=== PATIENT | male | born 1995 | race Caucasian/White ===

== ENCOUNTER 2025-05-01 14:35 | Inpatient (IN) | payer MEDICAID, SELFPAY ==
--- NOTE | 2025-05-01 14:37 | W.ED.PSYCHS ---
HPI - Psych General: Chief Complaint: Psychiatric Symptoms Stated Complaint: 96 Time Seen by Provider: 05/01/25 14:37 History of Present Illness: 29-year-old man who presents emergency room with police on an court ordered 96-hour hold. According to affidavit he had tied a belt around his neck and was going to kill himself. According to police he had told them that he was going to kill himself. He says today he is not suicidal he just really wants to go home. Apparently there was issues with his girlfriend breaking up with him. Or sleeping with someone else Related Data Home Medications ?Medication ?Instructions ?Recorded ?Confirmed famotidine 20 mg tablet 20 mg PO BID 12/22/24 02/24/25 pantoprazole 20 mg tablet,delayed 20 mg PO DAILY 12/22/24 02/24/25 release Previous Rx's ?Medication ?Instructions ?Recorded divalproex 250 mg tablet,extended 250 mg PO DAILY #30 tabs 12/22/24 release 24 hr sertraline 100 mg tablet 100 mg PO DAILY 30 days #30 tabs 12/22/24 quetiapine 50 mg tablet 50 mg PO DAILY #30 tabs 01/27/25 trazodone 100 mg tablet 100 mg PO BEDTIME PRN sleep #30 01/27/25 tabs paliperidone 3 mg tablet,extended 3 mg PO QAM #30 tabs 02/24/25 release 24 hr (Invega) Allergies Allergy/AdvReac Type Severity Reaction Status Date / Time No Known Allergies Allergy Verified 02/24/25 09:57 Review of Systems Narrative: Constitutional symptoms: Negative except as documented in HPI. Skin symptoms: Negative except as documented in HPI. Eye symptoms: Negative except as documented in HPI. ENMT symptoms: Negative except as documented in HPI. Respiratory symptoms: Negative except as documented in HPI. Cardiovascular symptoms: Negative except as documented in HPI. Gastrointestinal symptoms: Negative except as documented in HPI. Genitourinary symptoms: Negative except as documented in HPI. Musculoskeletal symptoms: Negative except as documented in HPI. Neurologic symptoms: Negative except as documented in HPI. Psychiatric symptoms: Negative except as documented in HPI. Endocrine symptoms: Negative except as documented in HPI. [facility] ED PFSH: Medical History (Updated 05/01/25 @ 15:32 by Rosalia Vernon MD) Schizophrenia Psychiatric care Physical Exam Narrative: EXAM NARRATIVE: General: Alert, no acute distress. Skin: Warm, dry. Head: Normocephalic, atraumatic. Neck: Supple, trachea midline. Eye: Extraocular movements are intact. Ears, nose, mouth and throat: mucosa moist. Cardiovascular: Regular, Normal peripheral perfusion. Respiratory: Lungs are clear to auscultation, respirations are non-labored, breath sounds are equal, Symmetrical chest wall expansion. Gastrointestinal: Soft, Nontender, Non distended Musculoskeletal: Normal ROM, no deformity. Neurological: Alert and oriented, No focal neurological deficit observed. Psychiatric: Cooperative, currently denies suicidal thoughts Course Vital Signs: Vital signs: Vital Signs Temperature 98.1 F 05/01/25 14:51 Pulse Rate 99 05/01/25 14:51 Respiratory Rate 18 05/01/25 14:51 Blood Pressure 138/76 05/01/25 14:51 Pulse Oximetry 99 05/01/25 14:51 Oxygen Delivery Me thod Room Air 05/01/25 14:51 MDM - Psych Medical Decision Making Differential diagnosis: Patient with reported depression and suicidal ideation. concerns for infection, alcohol intoxication, cardiac issues or other medical problems prior to psychiatric admission. Workup: labwork, ekg ordered to evaluate the pathologies and to clear the patient medically prior to psychiatric admission EKG: Time 1511. Rate 87. Normal sinus rhythm, No ST-T changes, no ectopy, normal AR & QRS intervals, This was reviewed and interpreted by myself the ER physician at 1515 Lab Review: Laboratory results were reviewed and interpreted by myself the emergency room physician. - Medically cleared. - EKG shows no ischemic changes. - Blood alcohol level is negative, -Tylenol and salicylate levels are negative. - Urinalysis and drug screen pending at admission - No anemia. - BUN and creatinine are within normal limits. Consultation: I spoke with Dr. Bermudez who is on-call for the psychiatry service who agrees to admission Assessment and plan: Suicidal ideation ?Patient is on a court ordered 96-hour hold -Admission to neuropsychiatric unit for continued evaluation and treatment. - All lab work was reviewed and interpreted personally by myself, the ER physician - Evaluation and treatment of this problem were appropriate in the emergency setting Lab Data 05/01/25 14:47 05/01/25 14:47 Laboratory Results WBC 7.86 10^3/uL (3.29-11.43) 10/17/25 14:47 RBC 4.73 10^6/uL (3.85-5.65) 05/01/25 14:47 Hgb 14.00 g/dL (11.27-16.99) 05/01/25 14:47 Hct 41.8 % (37-53) 05/01/25 14:47 MCV 88.4 fl (82-101) 05/01/25 14:47 MCH 29.6 pg (27-33) 05/01/25 14:47 MCHC 33.5 g/dL (30-55) 05/01/25 14:47 RDW 14.0 % (12.1-15.1) 05/01/25 14:47 Plt Count 272 10^3/cmm (157-399) 05/01/25 14:47 MPV 10.6 fL (7.4-10.4) H 05/01/25 14:47 Neut % (Auto) 66.4 % 05/01/25 14:47 Lymph % (Auto) 19.7 % 05/01/25 14:47 [place] % (Auto) 13.0 % 05/01/25 14:47 Eos % (Auto) 0.1 % 05/01/25 14:47 Baso % (Auto) 0.5 % 05/01/25 14:47 Neut # (Auto) 5.22 10^3/uL (1.8-7.7) 05/01/25 14:47 Lymph # (Auto) 1.6 10^3/uL (0.8-4.8) 05/01/25 14:47 [place] # (Auto) 1.0 10^3/uL (0.2-0.9) H 05/01/25 14:47 Eos # (Auto) 0.0 10^3/uL (0.0-0.8) 05/01/25 14:47 Baso # (Auto) 0.0 10^3/uL (0.0-0.1) 05/01/25 14:47 Nucleated RBC % (auto) 0 % 05/01/25 14:47 Nucleated RBCs # 0.0 /100WBC 05/01/25 14:47 Sodium 138 mmol/L (136-145) 05/01/25 14:47 Potassium 3.9 mmol/L (3.5-5.1) 05/01/25 14:47 Chloride 100 mmol/L (98-107) 05/01/25 14:47 Carbon Dioxide 21 mmol/L (22-29) L 05/01/25 14:47 Anion Gap 20.9 (5-19) H 05/01/25 14:47 BUN 19 mg/dL (6-20) 05/01/25 14:47 Creatinine 0.7 mg/dL (0.7-1.2) 05/01/25 14:47 GFR Calculation 132.4 mL/min (90-130) H 05/01/25 14:47 Glucose 71 mg/dL (65-115) 05/01/25 14:47 Calculated Osmolality 287 mOsm/kg (285-295) 05/01/25 14:47 Calcium 9.6 mg/dL (8.5-10.5) 05/01/25 14:47 Total Bilirubin 0.8 mg/dL (0.15-1.2) 05/01/25 14:47 AST 23 U/L (0-40) 05/01/25 14:47 ALT 17 U/L (0-41) 05/01/25 14:47 Alkaline Phosphatase 132 U/L (40-130) H 05/01/25 14:47 Total Protein 7.4 g/dL (6.6-8.7) 05/01/25 14:47 Albumin 4.4 g/dL (3.5-5.2) 05/01/25 14:47 Globulin 3.0 g/dL (1.3-4.6) 05/01/25 14:47 TSH 0.54 uIU/mL (0.27-4.20) 05/01/25 14:47 Salicylates < 0.3 mg/dL (3-10) L 05/01/25 14:47 Acetaminophen < 5.0 ug/mL (10-30) L 05/01/25 14:47 Ethyl Alcohol < 10 mg/dL (0-10) 05/01/25 14:47 No radiology studies performed this visit Discharge Plan Discharge Patient Disposition: Admitted As Inpatient Clinical Impression: Suicidal ideation Condition: Stable Coding Level of Care Code ED Lead Generator for Kelsi Sabillon
--- OUTSIDE RECORDS SUMMARY | 2025-05-01 14:43 | XMS_ITS | Clinical Summary ---
Author Organization [facility] Address [address] [place] [address] Phone Care Team Providers Care Ranch Helper Name Role Phone GuyVera JOCELYNE Primary Care Provider [phone] Allergies No known active allergies Medications haloperidol decanoate (Haldol Decanoate) 100 mg/mL injection Inject 100 mg into the shoulder, thigh, or buttocks every 28 (twenty-eight ) days. Active pantoprazole (ProtoNix) 20 mg EC tablet Take 20 mg by mouth 1 (one) time each day before breakfast. 02/24/2015 Active sertraline (Zoloft) 100 mg tablet Take 100 mg by mouth 1 (one) time each day. 02/24/2015 Active QUEtiapine (SEROquel) 100 mg tablet Take 100 mg by mouth 2 (two) times a day. 01/21/2025 Active diclofenac (Voltaren) 50 mg EC tabletIndicatio ns:Left elbow pain TAKE 1 TABLET BY MOUTH TWICE DAILY . DO NOT CRUSH, CHEW, OR SPLIT 60 tablet 02/20/2025 Active Active Problems No known active problems Encounters Date Type Department Care Team Description 02/19/2025 Refill [facility] [address] [place] [address] Kali Anne MD Left elbow pain from Last 3 Months Family History Medical History Relation Comments Cancer Mother Diabetes Mother's Sister Relation Status Comments Mother Alive Mother's Sister Alive Social History Tobacco Use Types Packs/Day Years Used Date Smoking Tobacco: Every Day Cigarettes 1 15 PHQ-2 Answer Date Recorded Patient Health Questionnaire-2 Score 0 11/24/2024 [facility] - Mental Health Answer Date Recorde d Little interest or pleasure in doing things Not at all 11/24/2024 Feeling down, depressed, or hopeless Not at all 11/24/2024 Feeling of Stress Not on file 11/24/2024 Sex and Gender Information Value Date Recorded Sex Assigned at Not on file Legal Sex Male 11:54 AM CDT Gender Identity Not on file Sexual Orientation Not on file Last Filed Vital Signs Vital Sign Reading Time Taken Comments Blood Pressure 123/82 11/24/2024 12:59 PM CDT Pulse 96 11/24/2024 12:59 PM CDT Temperature 36.8 C (98.3 F) 11/24/2024 12:59 PM CDT Respiratory Rate 20 11/24/2024 12:59 PM CDT Oxygen Saturation 96% 11/24/2024 12:59 PM CDT Inhaled Oxygen Concentration - - Weight 76.3 kg (168 lb 3.2 oz) 11/24/2024 12:59 PM CDT Height 170.2 cm (5' 7 ) 11/24/2024 12:59 PM CDT Body Mass Index 26.34 11/24/2024 12:59 PM CDT Plan of Treatment Health Maintenance Due Date Last Done Comments Lipid Panel 1994 MMR Vaccines (1 of 1 - Standard series) 1995 Varicella Vaccines (1 of 2 - 13+ 2-dose series) 2007 Social Drivers of Health (SDoH) 2012 Hepatitis B Vaccines (1 of 3 - 19+ 3-dose series) 2013 Pneumococcal Vaccine: 50+ Years (1 of 2 - PCV) 2013 Pneumococcal Vaccine (1 of 2 - PCV) 2013 DTaP,Tdap,and Td Vaccines (7 - Td or Tdap) 09/09/2020 09/09/2010, 11/23/1999, 11/06/1996, Additional history exists HPV Vaccines (1 - 3-dose SCDM series) 2021 COVID-19 Vaccine ( season) 2025 Influenza Vaccine (#1) 2025 09/19/2024 Depression Screening 11/25/2025 11/24/2024 Zoster Vaccines (1 of 2) 2044 RSV Vaccines (1 - 1-dose 75+ series) 2069 IPV Vaccines Completed 11/06/1996, 03/1996, 04/04/1995, Additional history exists HIB Vaccines Aged Out No longer eligi ble based on patient's age to complete this topic Hepatitis A Vaccines Aged Out No long er eligible based on patient's age to complete this topic Meningococcal B Vaccine Aged Out No l onger eligible based on patient's age to complete this topic Meningococcal Vaccine Aged Out No shabnam erlin eligible based on patient's age to complete this topic Rotavirus Vaccines Aged Out No longer eligible based on patient's age to complete this topic Insurance [employer] MEDICA[employer] Care Teams Ranch Helper Relationship Specialty Start Date End Date Vera Tovar NP PCP - General Family Medicine 10/28/24
[2025-05-01 14:51] VITALS: BP 138/76; PULSE 99; RESP 18; TEMP 36.7; O2SAT 99
[2025-05-01 14:54] LABS: Hematocrit 41.8 % (37-53); Hemoglobin 14.00 g/dL (11.27-16.99); Mean Corpuscular HGB Conc 33.5 g/dL (30-55); Mean Corpuscular Hemoglobin 29.6 pg (27-33); Mean Corpuscular Volume 88.4 fl (82-101); Nucleated Red Blood Cells % 0 %; Platelet Count 272 10^3/cmm (157-399); Red Blood Count 4.73 10^6/uL (3.85-5.65); White Blood Count 7.86 10^3/uL (3.29-11.43)
--- NOTE | 2025-05-01 15:11 | ECG_ITS ---
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 Measurements Intervals Briggs Rate: 87 P: 44 ID: [id number] QRS: 84 QRSD: 93 T: 61 QT: 410 QTc: 495 Interpretive Statements SINUS RHYTHM No previous ECG available for comparison Electronically Signed On 05-02-2025 11:58:03 CDT by Alberto Pérez M.D. [email or web address]
[2025-05-01 15:25] LABS: Alanine Aminotransferase 17 U/L (0-41); Albumin Level 4.4 g/dL (3.5-5.2); Alkaline Phosphatase 132 U/L (40-130); Anion Gap 20.9 (5-19); Aspartate Amino Transferase 23 U/L (0-40); Blood Urea Nitrogen 19 mg/dL (6-20); Calcium 9.6 mg/dL (8.5-10.5); Carbon Dioxide 21 mmol/L (22-29); Chloride 100 mmol/L (98-107); Globulin 3.0 g/dL (1.3-4.6); Glucose 71 mg/dL (65-115); Osmolality Calculated 287 mOsm/kg (285-295); Potassium 3.9 mmol/L (3.5-5.1); Sodium 138 mmol/L (136-145); Thyroid Stimulating Hormone 0.54 uIU/mL (0.27-4.20); Total Protein 7.4 g/dL (6.6-8.7)
[2025-05-01 15:30] LABS: Acetaminophen < 5.0 ug/mL (10-30); Alcohol Level < 10 mg/dL (0-10); Salicylate < 0.3 mg/dL (3-10)
[2025-05-01 15:37] LABS: Glucose Urine UA Negative (Normal); Nitrate Urine Negative (Negative)
[2025-05-01 15:42] LABS: Add Urine Microscopic? YES
[2025-05-01 15:46] VITALS: O2SAT 99
[2025-05-01 15:47] LABS: Specific Gravity, Urine 1.039 (1.005-1.030)
[2025-05-01 15:54] LABS: PCP Screen Urine Negative (Negative)
[2025-05-01 17:30] VITALS: BP 113/79; PULSE 89; RESP 16; TEMP 36.7; O2SAT 100
--- NOTE | 2025-05-01 17:42 | PC.NURSE ---
96 hour hold rights read to pt while he was in the ER. security present
--- NOTE | 2025-05-01 19:09 | PC.NURSE ---
pt administered zyprexia for anxiety. pt then recieved news from girlfriend that she had been sleeping with his brother. pt became increasingly up, pacing up and down hallways, crying administered haldol for pt anxiety .
[2025-05-01 20:53] VITALS: BP 126/81; PULSE 94; RESP 19; TEMP 36.7; O2SAT 98
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
[2025-05-02 06:00] VITALS: BP 124/68; PULSE 89; RESP 17; TEMP 36.9; O2SAT 90
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
[2025-05-02 14:00] VITALS: BP 109/68; PULSE 98; RESP 20; TEMP 36.7; O2SAT 99
[2025-05-02 21:35] VITALS: BP 105/68; PULSE 84; RESP 18; TEMP 36.5; O2SAT 98
[2025-05-02 21:41] VITALS: BMI 24.8
[2025-05-03 06:00] VITALS: BP 120/77; PULSE 93; RESP 18; TEMP 36.9; O2SAT 99
[2025-05-03] MEDS: divalproex ER 250 mg Tablet (24H) PO (08:04)
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
[2025-05-03 14:00] VITALS: BP 102/67; PULSE 76; RESP 16; TEMP 36.4; O2SAT 98
--- NOTE | 2025-05-03 19:00 | PC.NURSE ---
Patient advises nsg that he does not want Jennifer , his , to be able to obtain information about him, nor does he want to talk with her & that staff can advise her of this again if she calls back, as he's already had the buckle sorter's office in their town contact her to inform her of such. She called this evening et nsg did as patient requested et informed her that he does not want her to call here. She became belligerent et nsg told her that we appologize, but this is a medical facility et we will honor his request, he's asked you not to contact him here again. She continued to yell at staff et again was informed again, we apologize but we need to end this call et disconnected. Patient advised of event. Patient edits his HIPPA form to cross her information off, et adds only a girlfriend by the name of Blanca. Patient is given a special code of [id number] to give to his family/ allowed callers that he wishes to reach him, et staff advised of the code. Patient thanks staff for helping him.
[2025-05-03 22:00] VITALS: BP 134/73; PULSE 90; RESP 18; TEMP 36.5; O2SAT 99
[2025-05-04 06:00] VITALS: BP 149/75; PULSE 90; RESP 22; TEMP 36.6; O2SAT 96
[2025-05-04] MEDS: divalproex ER 250 mg Tablet (24H) 500 MG PO (08:11)
[2025-05-04 13:52] VITALS: BP 105/71; PULSE 92; RESP 16; TEMP 36.6; O2SAT 98
--- NOTE | 2025-05-04 14:03 | W.PM.NPUPNS ---
Subjective NPU Subjective: 29-year-old male with a history of aggression and depression admitted with suicidal ideation, with history of psychosis and PTSD. Patient reported that he was sleeping better. He had continued to report some nightmares but stated that they were less frequent with the increase in Seroquel. He had reported continued anxiety and depression. He had reported having frequent flashbacks that had worsened with his 6 to 8-week period at without his Zoloft. He had reported no side effects from his Lexapro. He had reported no feelings of hopelessness. He reported that the voices had been better. He denied feeling suicidal today. He had reported having intense recollections regarding his trauma. He reported hypervigilance. He continued to express interest in receiving psychotherapy for managing his PTSD symptoms. Mental Status Exam MSE Comments: This is a a well-nourished well-developed white male in hospital scrubs with improved grooming and intense eye contact. No abnormal involuntary motor movements except for mild psychomotor agitation. He was mostly cooperative with exam in mild distress. His speech was normal in rate and normal in volume. Mood described as better. His affect was brighter today. His thought process was linear, logical, and goal-directed.. Thought content: Patient denied suicidal and denied homicidal ideation. There were no delusions reported but some persecutory and paranoid thinking noted, he did not appear to be attending to internal stimuli and denied any auditory or visual hallucinations. Attention and concentration were intact and memory appeared mostly reliable but none were formally tested. He is alert and oriented x 3. Insight, judgment and impulse control are impaired. Vitals/I&O/Wt Last Vital Signs Temp 98 F 05/04/25 13:52 Pulse 92 05/04/25 13:52 Resp 16 05/04/25 13:52 BP 105/71 05/04/25 13:52 Pulse Ox 98 05/04/25 13:52 O2 Del Method Room Air 05/04/25 13:52 Weight last 48 hrs Weight 71.894 kg Data NPU 05/01/25 14:47 05/01/25 14:47 A&P Assessment and plan 1. MDD (major depressive disorder): 2. Suicidal ideation: 3. Impulse control disorder, unspecified: 4. PTSD (post-traumatic stress disorder): Plan: This is a 29-year-old white male unknown to [facility] except for outpatient services who presents reporting medications not being effective, suicidality and having a really tough time overall. 1. Continue Lexapro 10mg in am, move invega to 3mg at night. Increase seroquel to 100mg at night and continue Depakote 500mg ER in am. 2. Continue every 15 minute checks for safety 3. Continue to encourage individual milieu and group therapy 4. Encourage sober living treatment after discharge at the highest level care to which the patient is willing to commit. 5. Evaluate against the backdrop of the 96-hour hold. 6. Obtain collateral information. PDMP PDMP Reviewed: Not Reviewed Involuntary Hold Information Hold Status: Legal Status: 96 Hour Hold Date/Time Hold Expires: 05/07/2025@1514 Attestations NPU Medical Necessity Statement*: Inpatient psychiatric hospitalization is medically necessary and the clinically appropriate intervention at this time. We will monitor/initiate medications and make changes as indicated. The patient's likely length of stay is 1-2 days. Coding Level of Care Code Acute Code for [facility] Fwd Diagnoses MDD (major depressive disorder) F32.9 Suicidal ideation R45.851 Impulse control disorder, unspecified F63.9 PTSD (post-traumatic stress disorder) F43.10
[2025-05-04 20:52] VITALS: BP 125/82; PULSE 89; RESP 18; TEMP 36.4; O2SAT 100
[2025-05-05 06:00] VITALS: BP 116/70; PULSE 100; RESP 17; TEMP 36.4; O2SAT 98
[2025-05-05] MEDS: divalproex ER 250 mg Tablet (24H) 500 MG PO (08:07)
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
[2025-05-05 12:45] VITALS: BP 105/70; PULSE 136; RESP 20; TEMP 36.4; O2SAT 99
[2025-05-05 13:19] VITALS: BP 105/70; PULSE 136; RESP 20; TEMP 36.4; O2SAT 99
[2025-05-05 13:45] VITALS: BP 105/70; PULSE 136; RESP 20; TEMP 36.4; O2SAT 99
== END 2025-05-05 13:52 | disposition home or self-care (01) | DRG 881 ==
LOC: ER 15:32 → NP 15:43
PROVIDERS: Admitting Provider Psychiatry & Neurology Psychiatry; Emergency Provider Emergency Medicine; Visit Provider Psychiatry & Neurology Psychiatry
DX: F32.9 Major depressive disorder, single episode, unspecified (principal); R45.851 Suicidal ideations; F63.9 Impulse disorder, unspecified; F43.10 Post-traumatic stress disorder, unspecified; Z63.9 Problem related to primary support group, unspecified
CPT/HCPCS: 36415; 80053; 80306; 80307; 81001; 84443; 85025; 93005; 97150; 97165; 99285; J9999